=== PATIENT | female | born 1995 | race Caucasian/White ===

== ENCOUNTER 2023-08-14 05:16 | Emergency (ER) | payer BC, SELFPAY ==
[2023-08-14 05:18] VITALS: BP 130/95
[2023-08-14 05:52] LABS: COVID-19 Antigen Negative (Negative)
--- NOTE | 2023-08-14 07:36 | ED.GENMED ---
History of Present Illness
General
Chief Complaint: Breathing Problem
Source: patient
Exam Limitations: none
Time Seen by Provider: 08/14/23 07:05
Nursing documentation reviewed up to this point in time: agreed with
Travel History
Have you had any contact with someone who has COVID-19?: No
Do you have any symptoms of coronavirus? Fever > 100 degrees, chills, cough, shortness of breath, sore throat, loss of taste or smell, muscle aches, or headache?: Yes
Symptoms:: SOB, congestion
History of Present Illness
History of Present Illness:
Patient is a 27 yr old female who presents to the ER for evaluation of chest pain shortness of breath. Patient reports Friday she started with feeling nauseous runny nose and has had intermittent cough. On Friday she did have intermittent fevers
of 101.9. Last night however around 4 AM she was awoken by feeling some discomfort in her chest without shortness of breath. She does feel some pain with taking a deep breath and chest feels sore.
She does not smoke. She is on oral control. Mom does have history of clots however is a cancer/chemo patient. She has never had any DVT in the past. She has been taking NyQuil but nothing else for discomfort.
Past History
Past History
ED Past Medical History: Psychiatric (adhd)
ED Past Surgical History: None
Social History
Tobacco: Non-smoker
Alcohol: None
Personal: Single
Living: with family
Employment: Employed
Family History
Family History: Other (Noncontributory)
Review of Systems
Review of Systems
Allergies reviewed?: Yes
All Other Systems: ROS reviewed and negative except as documented in HPI and ROS
Constitutional: Reports fever, fatigue and chills
EENT: Reports no symptoms
Respiratory: Reports cough, trouble breathing and other (anterior chest sore )
Cardiac: Reports no symptoms
ABD/GI: Reports no symptoms
: Reports no symptoms
Musculoskeletal: Reports no symptoms
Skin: Reports no symptoms
Neurological: Reports no symptoms
Hematologic/Lymphatic: Reports no symptoms
Psychiatric: Reports no symptoms
Phy Exam
General Physical Exam
General Presentation: no apparent distress
General age: appears stated age
General Skin: warm and dry
General Habitus: normal
General Hydration: appears well hydrated
Cardiovascular Exam
Cardiovascular Exam: regular rate/rhythm, no murmur and normal peripheral pulses
Pulmonary Exam
Pulmonary Exam: lungs clear, no respiratory distress and other (anterior chest is sore on exam )
Neurological Exam
Neurological Exam: alert and oriented x3
Musculoskeletal Exam
Musculoskeletal Exam: full ROM
Skin Exam
Skin Exam: normal color and warm/dry
Psychiatric Exam
Psychiatric Exam: normal mood/affect
Course
Orders/Labs/Results
Orders:
Orders
08/14/23 05:26
COVID-19 Antigen Urgent
Source: Nasal Swab
Influenza A+B Rapid Molecular Urgent
ALEKS Source: Nasal Swab
Specimen Description:
08/14/23 07:34
IV Insert/Care/Rem.- Treatment PRN
Ketorolac [Toradol] 15 mg IV NOW STA
08/14/23 07:35
Electrocardiogram (*1) Stat
Reason for Study: Other
Other Reason for Exam: chest pain
EKG- Treatment ONCE
CR Chest - 2 Views Urgent
Comment:
Reason For Exam: sob/cp
08/14/23 08:19
Complete Blood Count/With Diff Urgent
Comprehensive Metabolic Panel Urgent
D-Dimer Urgent
Abnormal Lab Results
08/14/23
08:19
MPV 10.5 H fL
(7.4-10.4)
Absolute Monos (auto) 0.8 H 10^3/uL
(0.1-0.6)
Lymphocytes % 20.2 L %
(20.5-51.1)
BUN 6 L mg/dl
(7-17)
08/14/23 08:19
08/14/23 08:19
Vital Signs
Initial and Last Documented VS:
Initial Vital Signs
Temp Pulse Resp BP Pulse Ox
97.8 F 99 18 130/95 99
08/14/23 05:18 08/14/23 05:18 08/14/23 05:18 08/14/23 05:18 08/14/23 05:18
Last Documented Vital Signs
Temp Pulse Resp BP Pulse Ox
97.8 F 77 15 130/95 96
08/14/23 05:18 08/14/23 09:30 08/14/23 09:30 08/14/23 05:18 08/14/23 09:30
MDM/Problems Addressed
Differential Diagnosis Includes:
Not limited to viral syndrome, COVID, flu, muscular chest pain from coughing, less likely PE
MDM/Problems Addressed:
Symptoms are consistent with viral syndrome, pleuritic chest pain from cough. Patient is negative for COVID flu negative D-dimer chest x-ray unremarkable. She is nontachycardic not hypoxic lungs are clear mildly anterior tenderness on exam to
chest.
Will d/c w/ supportive care /NDAIDS/tylenol, fluids.
*Radiology
Radiology exam reviewed: radiology read reviewed
*Pulse Oximetry
Patient hypoxic: no
*EKG
Interpreted by ED Provider?: Yes
Heart Rate: 77
Rate: normal
Rhythm: sinus
Ischemia: no ischemia
*Critical Care Note
Total Time (30-74mins, 75-104mins- exclusive of procedures): Not Applicable
ED Attending Note
-
Portions of this chart may have been created with voice recognition software.� Occasional wrong word or��sound alike� substitutions may have occurred due to the inherent limitations of voice recognition software.
Discharge Plan
Departure
Patient Disposition: Home (Routine Discharge)
Date of Disposition: 08/14/23
Time of Disposition: 09:52
Patient with high blood pressure during this ER visit?: Yes
Covid-19: Not Applicable
Discharge Problem:
Acute viral syndrome
Instructions: Viral Syndrome (DC)
Prescriptions:
No Action
amoxicillin 500 MG capsule
500 mg PO TID Qty: 30 0RF
ondansetron 4 MG tablet,disintegrating
4 mg PO QIDPRN PRN (Reason: NAUSEA) Qty: 15 0RF
Referrals:
Tenthoff,Lauren Parson MD [Family Provider] -
Stand Alone Forms: Return to Work
Activity Restrictions/Additional Instructions:
You may take ibuprofen 600 mg every 8 hours with food for chest discomfort. You may alternate with Tylenol. Stay well-hydrated.
As discussed symptoms are consistent with viral syndrome. Follow-up with your family doctor in the next several days for reevaluation return if any worsening of symptoms
Interventions
Interventions:
*Risk Screen - Suicide Last Done: 08/14/23 05:23
*General Assessment Last Done: 08/14/23 05:23
*Neglect/Abuse Screening Last Done: 08/14/23 05:23
ED- Fall Risk Assessment Last Done: 08/14/23 09:12
*ED COVID-19 Vaccine History Last Done: 08/14/23 05:23
ED- Cardiac Assessment Last Done: 08/14/23 09:12
ED- Pulmonary Assessment Last Done: 08/14/23 09:12
[2023-08-14] MEDS: TORADOL 15 MG IV (08:26)
[2023-08-14 08:28] LABS: % Basophils 0.5 % (0-2); % Eosinophils 5.1 % (0-6); % Immature Granulocytes 0.3 % (0-0.5); % Lymphocytes 20.2 % (20.5-51.1); % Monocytes 8.8 % (1.7-9.3); % Neutrophils 65.1 % (42.2-75.2); Absolute Basophils 0.1 10^3/uL (0-0.2); Absolute Eosinophils 0.5 10^3/uL (0-0.7); Absolute Lymphocytes 1.9 10^3/uL (1.2-3.4); Absolute Monocytes 0.8 10^3/uL (0.1-0.6); Hematocrit 38.7 % (37.0-47.0); Hemoglobin 13.4 g/dL (12.0-16.0); Mean Corp Hgb Conc. 34.6 g/dL (33.0-37.0); Mean Corpuscular Hgb 30.2 pg (27.0-31.0); Mean Corpuscular Volume 87.2 fL (81.0-99.0); Mean Platelet Volume 10.5 fL (7.4-10.4); Nucleated Red Blood Cells % 0 %; Platelet Count 301 10^3/uL (130-400); Red Blood Cell Count 4.44 10^6/uL (4.20-5.40); Red Cell Dist. Width 13.6 % (11.5-14.5); White Blood Cell Count 9.2 10^3/uL (4.8-10.8)
[2023-08-14 08:43] LABS: ALT (SGPT) 21 U/L (0-35); AST (SGOT) 30 U/L (14-36); Albumin 4.1 g/dl (3.5-5.0); Alkaline Phosphatase 82 U/L (38-126); Blood Urea Nitrogen 6 mg/dl (7-17); Calcium 8.9 mg/dl (8.4-10.2); Carbon Dioxide 28 mmol/L (22-30); Chloride 105 mmol/L (98-107); Glucose 83 mg/dl (70-99); Potassium 4.3 mmol/L (3.5-5.1); Sodium 137 mmol/L (135-145); Total Bilirubin 0.6 mg/dl (0.2-1.3); Total Protein 7.5 g/dl (6.3-8.2); eGFR > 60.00
[2023-08-14 08:59] LABS: D-Dimer < 0.27 ug/mlFEU (0.00-0.50)
[2023-08-14 10:41] VITALS: BP 122/78
[2023-08-14 10:51] VITALS: BP 122/78
== END 2023-08-14 10:55 | disposition home or self-care (01) ==
LOC: EMR 05:16
PROVIDERS: Emergency Medicine; Nurse Practitioner; EMERGENCY PHYSICIAN Emergency Medicine; FAMILY PHYSICIAN Family Medicine
DX: B34.9 Viral infection, unspecified (principal)
CPT/HCPCS: 99283; 96374; 71046; 80053; 85025; 85379; 87502; 87811; 93005

== ENCOUNTER 2024-12-16 02:50 | Emergency (ER) | payer BC, SELFPAY ==
[2024-12-16 02:58] VITALS: BP 141/84
[2024-12-16 03:23] VITALS: BMI 36.3
--- NOTE | 2024-12-16 03:29 | ED.GENMED ---
History of Present Illness
General
Chief Complaint: Throat Problem
Source: patient
Exam Limitations: none
Time Seen by Provider: 12/16/24 03:19
Nursing documentation reviewed up to this point in time: agreed with
History of Present Illness
History of Present Illness:
This is a 28-year-old female with a past medical history of PCOS who presents an emergency apartment with concerns of a sore throat for the past five days or so. Patient reports that she originally saw her primary care provider for these symptoms
and she was tested for strep throat but the test has not come back yet and her symptoms have persistent . Patient states that it hurts when she swallows. Patient also has a associated runny nose and symptoms of congestion. She nice chest pain or
shortness of breath. She denies fevers or chills. She also notes that she has a swollen lymph node on her right anterior neck. In addition, patient reports that she has bilateral ear pain. She reports that it hurts more on the right side than the
left. She needs any pain behind the ear. She needs drainage from the ear. 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 Patient is up-to-date on her vaccinations. Patient states that she feels the pain all over
and does not necessarily feel like one side hurts more than the other. She denies any difficulty eating. She denies difficulty opening the mouth fully or pain opening the mouth. Patient has taken Tylenol without relief.
Past History
Past History
ED Past Medical History: Psychiatric (adhd)
ED Past Surgical History: None
Social History
Tobacco: Non-smoker
Alcohol: None
Personal: Single
Living: with family
Employment: Employed
Family History
Family History: Other (Noncontributory)
Review of Systems
Review of Systems
All Other Systems: ROS reviewed and negative except as documented in HPI and ROS
Phy Exam
Physical Exam
Physical Exam:
General: Patient is well appearing and in no acute distress; non-toxic
Skin: Warm and dry, no rashes or lesions
Head: Normocephalic, atraumatic
Eyes: Sclera non-icteric. EOMs intact.
Ears: R (Mild swelling and erythema noted to EAC no white exudate, no purulent drainage. TM clear without bulging or erythema. no mastoid tenderness.) L (left EAC without erythema or drainage. TM clear no erythema, no mastoid tenderness)
Mouth: No intra-oral lesions
Throat: Uvula midline. Bilateral tonsillar hypertrophy with pharyngeal erythema. No tonsillar exudates.
Neck: Right sided tender anterior cervical lymph node
Cardiac: Regular rate and rhythm, no murmurs
Pulm: Normal respiratory effort, no wheezes, rales, or rhonchi
Abdomen: No abdominal tenderness to palpation
Neuro: CN II-XII intact, no focal neurologic deficits.
Psychiatric: Appropriate mood and affect.
Course
Orders/Labs/Results
Orders:
Orders
12/16/24 03:41
Ibuprofen [Motrin] 600 mg PO NOW STA
12/16/24 03:49
COVID-19 Antigen Urgent
Source: Nasal Swab
Influenza A+B Rapid Molecular Urgent
ALEKS Source: Nasal Swab
Specimen Description:
Rapid Strep Group A Urgent
ALEKS Source: Throat/Pharynx
Specimen Description:
Date Specimen was Collected: 12/16/24
Time Specimen was Collected: 03:42
Throat Culture [Throat Culture, Comprehensive] Urgent
ALEKS Source: Throat/Pharynx
Specimen Description:
Date Specimen was Collected: 12/16/24
Time Specimen was Collected: 03:47
Vital Signs
Initial and Last Documented VS:
Initial Vital Signs
Temp Pulse Resp BP Pulse Ox
99.9 F 102 17 141/84 98
12/16/24 02:58 12/16/24 02:58 12/16/24 02:58 12/16/24 02:58 12/16/24 02:58
Last Documented Vital Signs
Temp Pulse Resp BP Pulse Ox
99.9 F 97 18 135/91 99
12/16/24 02:58 12/16/24 06:02 12/16/24 06:02 12/16/24 06:02 12/16/24 06:02
MDM/Problems Addressed
Differential Diagnosis Includes:
viral pharyngitis, bacterial tonsillitis, URI,
MDM/Problems Addressed:
This is a 28-year-old female with a past medical history of PCOS who presents an emergency apartment with concerns of a sore throat for the past five days or so. Tylenol has not been helping with her symptoms. She is awaiting the results of a strep
test from her primary care provider. She has no fever, trismus, hot potato voice. On physical exam, she is well appearing. Her uvula is midline and she does have bilateral tonsillar hypertrophy, an inflamed cervical node, and pharyngeal erythema
most likely consistent with a viral pharyngitis. No exudates seen. 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 Rapid strep negative. Ibuprofen improved symptoms. Other symptoms likely related to viral syndrome however patient does have redness and some mild swelling noted
to right EAC. Will initiate abx drops for otitis externa. No evidence of AOM. Pt stable for discharge.
*Critical Care Note
Total Time (30-74mins, 75-104mins- exclusive of procedures): Not Applicable
ED Attending Note
-
Portions of this chart may have been created with voice recognition software.� Occasional wrong word or��sound alike� substitutions may have occurred due to the inherent limitations of voice recognition software.
Discharge Plan
Departure
Patient Disposition: Home (Routine Discharge)
Date of Disposition: 12/16/24
Time of Disposition: 05:46
Patient with high blood pressure during this ER visit?: Yes
Condition: Good
Discharge Problem:
Acute tonsillitis, Otitis externa
Instructions: Sore throat in adults, BLOOD PRESSURE
Prescriptions:
New
methylprednisolone [Medrol (Santos)] 4 mg tablets,dose pack
See Rx Instructions .ROUTE .COMPLEX Qty: 21 0RF
Rx Instructions:
orally per package directions
ofloxacin 0.3 % drops
10 drp otic (ear) DAILY 7 Days Qty: 10 0RF
No Action
citalopram 40 mg Tablet
40 mg PO DAILY
bupropion HCl 100 mg Tablet Sustained-Release 12 Hr
100 mg PO DAILY
Rx Instructions:
take with 300mg
metformin 500 mg Tablet Extended Release 24 Hr
1,000 mg PO DAILY
bupropion HCl 300 mg Tablet Extended Release 24 Hr
300 mg PO DAILY
lisdexamfetamine 40 mg Capsule
40 mg PO DAILY
Referrals:
Tenthoff,Lauren Parson MD [Family Provider, [facility]]
Stand Alone Forms: Return to Work
Activity Restrictions/Additional Instructions:
Medrol Dosepak has been sent to your pharmacy. Please follow package instructions for dosing. For your right ear, eardrops have been sent to your pharmacy. Please instill 10 drops into the ear once daily for 7 days.
PLEASE RETURN EMERGENCY DEPARTMENT SHOULD YOU DEVELOP INABILITY TO TOLERATE ORAL INTAKE, INABILITY TO OPEN YOUR MOUTH, DROOLING/INABILITY TO SPEAK, SWELLING BEHIND THE EAR, INTRACTABLE FEVERS, INTRACTABLE NAUSEA OR VOMITING, CHEST PAIN, SHORTNESS OF
BREATH, OR ANY OTHER SIGNS OR SYMPTOMS WORRISOME TO YOU
Interventions
Interventions:
*Risk Screen - Suicide Last Done: 12/16/24 02:58
*General Assessment Last Done: 12/16/24 06:01
*Neglect/Abuse Screening Last Done: 12/16/24 03:17
*ED- Fall Risk Assessment Last Done: 12/16/24 03:17
*ED COVID-19 Vaccine History Last Done: 12/16/24 03:17
*Nursing Disposition Last Done: 12/16/24 06:02
ED-EENT Assessment Last Done: 12/16/24 03:31
ED- Pulmonary Assessment Last Done: 12/16/24 03:31
Discharge Date and Time
Discharge Date/Time: 12/16/24 06:02
Print Language: NEPALI
[2024-12-16] MEDS: MOTRIN 600 MG PO (03:50)
[2024-12-16 04:31] LABS: COVID-19 Antigen Negative (Negative)
[2024-12-16 06:02] VITALS: BP 135/91
== END 2024-12-16 06:02 | disposition home or self-care (01) ==
LOC: EMR 02:50
PROVIDERS: Physician Assistant; EMERGENCY PHYSICIAN Emergency Medicine; FAMILY PHYSICIAN Family Medicine
DX: J03.90 Acute tonsillitis, unspecified (principal); H60.501 Unspecified acute noninfective otitis externa, right ear; R59.0 Localized enlarged lymph nodes; Z11.52 Encounter for screening for COVID-19; R03.0 Elevated blood-pressure reading, without diagnosis of hypertension; E28.2 Polycystic ovarian syndrome; F90.9 Attention-deficit hyperactivity disorder, unspecified type; F32.A Depression, unspecified; F41.9 Anxiety disorder, unspecified
CPT/HCPCS: 99283; 87070; 87502; 87811; 87880